=== PATIENT | male | born 1990 | race Caucasian/White ===

== ENCOUNTER 2018-02-06 02:58 | Emergency (ER) | payer OTHER, SELFPAY ==
[2018-02-06 03:00] VITALS: BP 159/94; PULSE 108; RESP 28; TEMP 36.2; O2SAT 98
[2018-02-06 03:04] VITALS: O2SAT 95
[2018-02-06] MEDS: Albuterol/Ipratropium 3 ML UPD VIAL (03:04)
--- NOTE | 2018-02-06 03:05 | W.ED.GENAD ---
Discharge Plan Disposition Patient Disposition: HOME Condition: Improving Discharge Details Chief Complaint: RespSymp Clinical Impression: RAD (reactive airway disease) with wheezing Primary Care Provider: Epi Gupta ED Provider: Herbert Santizo Home Meds and New Rx's Prescriptions: New prednisone 20 mg tablet 40 mg PO DAILY Qty: 8 RF: 0 albuterol sulfate 90 mcg/actuation HFA aerosol inhaler 2 puff IH Q4H PRN (Reason: shortness of breath or wheezing) Qty: 8.5 RF: 0 Discharge Instructions Instructions: Reactive Airways Disease (ED) Additional Instructions: Start taking prednisone tomorrow morning. Use the inhaler every 4 hours to help with wheezing, cough, shortness of breath. Will have case management work with you in getting a primary care follow-up next week. Return to ED for fever, increasing shortness of breath, chest pain, other concerns Referrals: Care Management [Provider Group] Medical Decision Making Patient here with difficulty breathing and wheezing throughout. Has history of exercise-induced asthma and is been ill with URI. He is given a DuoNeb followed by an albuterol. He is given prednisone. Will get chest x-ray as he has had a prolonged URI with residual cough. Doing much better after updrafts. Has received a total of 3. Breathing much better with significant decrease in wheezing though a few scattered wheezes are left. Chest x-ray per my review and preliminary radiology read negative. Patient will be discharged home with an albuterol inhaler with spacer as well as a prescription for steroids. He does not have primary care so we will put on care managers list to get him follow-up next week. Return to ED for fever, chest pain, increasing shortness of breath, other concerns. HPI General Mode of arrival: ambulatory. Date/Time Provider Initiated Documentation: 02/06/18 03:05. Limitations to Documentation: no limitations. Information obtained by: patient. HPI Narrative: Patient presents with cough and shortness of breath. He has had a cold for a couple of weeks which he thought was getting better. The only symptom that continued with cough. Over the last day or so has been worse. Tonight he is having difficulty breathing. He denies any fever. He denies any chest pain. He stopped smoking a couple months ago. He had history of exercise-induced asthma when he was younger. Related Data Home Medications Medication Instructions Recorded Confirmed albuterol sulfate 2 puff IH Q4H PRN #8.5 gm 02/06/18 prednisone 40 mg PO DAILY #8 tab 02/06/18 Previous Rx's Medication Instructions Recorded albuterol sulfate 2 puff IH Q4H PRN #8.5 gm 02/06/18 prednisone 40 mg PO DAILY #8 tab 02/06/18 Allergies Allergy/AdvReac Type Severity Reaction Status Date / Time No Known Allergies Allergy Unverified 02/06/18 03:03 General Stated Complaint: RespSymp CARMEN: 3 Review of Systems Constitutional Denies chills, Denies fever(s), Denies headache(s) and Denies weakness Eyes Denies eye discharge and Denies eye pain ENT Denies otalgia, Denies facial pain, Denies headache(s) and Denies sore throat Cardiovascular Denies chest pain, Denies diaphoresis, Denies pedal edema, Denies lightheadedness and Reports dyspnea Respiratory Reports cough, Reports dyspnea and Reports wheezing Gastrointestinal Denies abdominal pain, Denies diarrhea, Denies nausea and Denies vomiting Musculoskeletal Denies myalgias, Denies arthralgias and Denies numbness Integumentary/Breasts Denies rash Neurologic Denies headache(s), Denies focal weakness, Denies numbness and Denies weakness Allergic/Immunologic Reports wheezing PFSH Medical History HTN (hypertension) (Chronic) Social History Smoking/Tobacco Use Status: Former Tobacco Use Surgical History S/P wrist surgery (Inactive) Exam Const General: cooperative and no acute distress Orientation: alert and oriented x3 [facility] Head: normocephalic and atraumatic Ears: TM's normal bilaterally Mouth: oropharynx normal Throat: posterior oropharynx normal Neck Neck: trachea midline and supple Resp Effort & Inspection: tachypneic Auscultation: wheezes Cardio Rate: regular rate Rhythm: regular rhythm Heart Sounds: S1 normal and S2 normal Neuro General: alert, oriented x3, no focal motor deficits and CN's II-XI intact bilaterally Course Vital Signs Temperature 97.2 F L 02/06/18 03:00 Pulse 108 H 02/06/18 03:00 Respiratory Rate 28 H 02/06/18 03:00 Blood Pressure 159/94 H 02/06/18 03:00 Pulse Oximetry 98 02/06/18 03:00 Temperature 97.2 F L 02/06/18 03:00 Temperature Source Skin 02/06/18 03:00 Pulse 108 H 02/06/18 03:00 Respiratory Rate 28 H 02/06/18 03:00 Respiratory Effort Incrsd Work of Breathing 02/06/18 03:02 Blood Pressure 159/94 H 02/06/18 03:00 Blood Pressure Position Sitting 02/06/18 03:00 Pulse Oximetry 95 02/06/18 03:04 Oxygen Delivery Method Room Air 02/06/18 03:04 Oxygen Flow Rate 0 02/06/18 03:04 Pain Level 0 02/06/18 03:00
--- NOTE | 2018-02-06 03:14 | ED.GENADUL_ITS ---
Discharge Plan Disposition Patient Disposition: HOME Condition: Improving Discharge Details Chief Complaint: RespSymp Clinical Impression: RAD (reactive airway disease) with wheezing Primary Care Provider: Epi Gupta ED Provider: Herbert Santizo Home Meds and New Rx's Prescriptions: New prednisone 20 mg tablet 40 mg PO DAILY Qty: 8 RF: 0 albuterol sulfate 90 mcg/actuation HFA aerosol inhaler 2 puff IH Q4H PRN (Reason: shortness of breath or wheezing) Qty: 8.5 RF: 0 Discharge Instructions Instructions: Reactive Airways Disease (ED) Additional Instructions: Start taking prednisone tomorrow morning. Use the inhaler every 4 hours to help with wheezing, cough, shortness of breath. Will have case management work with you in getting a primary care follow-up next week. Return to ED for fever , increasing shortness of breath, chest pain, other concerns Referrals: Care Management [Provider Group] Medical Decision Making Patient here with difficulty breathing and wheezing throughout. Has history of exercise-induced asthma and is been ill with URI. He is given a DuoNeb followed by an albuterol. He is given prednisone. Will get chest x-ray as he has had a prolonged URI with residual cough. Doing much better after updrafts. Has received a total of 3. Breathing much better with significant decrease in wheezing though a few scattered wheezes are left. Chest x-ray per my review and preliminary radiology read negative. Patient will be discharged home with an albuterol inhaler with spacer as well as a prescription for steroids. He does not have primary care so we will put on care managers list to get him follow-up next week. Return to ED for fever, chest pain, increasing shortness of breath, other concerns. HPI General Mode of arrival: ambulatory . Date/Time Provider Initiated Documentation: 02/06/18 03:05 . Limitations to Documentation: no limitations . Information obtained by: patient . HPI Narrative: Patient presents with cough and shortness of breath. He has had a cold for a couple of weeks which he thought was getting better. The only symptom that continued with cough. Over the last day or so has been worse. Tonight he is having difficulty breathing. He denies any fever. He denies any chest pain. He stopped smoking a couple months ago. He had history of exercise-induced asthma when he was younger. Related Data Home Medications Medication Instructions Recorded Confirmed albuterol sulfate 2 puff IH Q4H PRN #8.5 gm 02/06/18 prednisone 40 mg PO DAILY #8 tab 02/06/18 Previous Rx's Medication Instructions Recorded albuterol sulfate 2 puff IH Q4H PRN #8.5 gm 02/06/18 prednisone 40 mg PO DAILY #8 tab 02/06/18 Allergies Allergy/AdvReac Type Severity Reaction Status Date / Time No Known Allergies Allergy Unverified 02/06/18 03:03 General Stated Complaint: RespSymp CARMEN: 3 Review of Systems Constitutional Denies chills, Denies fever(s), Denies headache(s) and Denies weakness Eyes Denies eye discharge and Denies eye pain ENT Denies otalgia, Denies facial pain, Denies headache(s) and Denies sore throat Cardiovascular Denies chest pain, Denies diaphoresis, Denies pedal edema, Denies lightheadedness and Reports dyspnea Respiratory Reports cough, Reports dyspnea and Reports wheezing Gastrointestinal Denies abdominal pain, Denies diarrhea, Denies nausea and Denies vomiting Musculoskeletal Denies myalgias, Denies arthralgias and Denies numbness Integumentary/Breasts Denies rash Neurologic Denies headache(s), Denies focal weakness, Denies numbness and Denies weakness Allergic/Immunologic Reports wheezing PFSH Medical History HTN (hypertension) (Chronic) Social History Smoking/Tobacco Use Status: Former Tobacco Use Surgical History S/P wrist surgery (Inactive) Exam Const General: cooperative and no acute distress Orientation: alert and oriented x3 [facility] Head: normocephalic and atraumatic Ears: TM's normal bilaterally Mouth: oropharynx normal Throat: posterior oropharynx normal Neck Neck: trachea midline and supple Resp Effort & Inspection: tachypneic Auscultation: wheezes Cardio Rate: regular rate Rhythm: regular rhythm Heart Sounds: S1 normal and S2 normal Neuro General: alert, oriented x3, no focal motor deficits and CN's II-XI intact bilaterally Course Vital Signs Temperature 97.2 F L 02/06/18 03:00 Pulse 108 H 02/06/18 03:00 Respiratory Rate 28 H 02/06/18 03:00 Blood Pressure 159/94 H 02/06/18 03:00 Pulse Oximetry 98 02/06/18 03:00 Temperature 97.2 F L 02/06/18 03:00 Temperature Source Skin 02/06/18 03:00 Pulse 108 H 02/06/18 03:00 Respiratory Rate 28 H 02/06/18 03:00 Respiratory Effort Incrsd Work of Breathing 02/06/18 03:02 Blood Pressure 159/94 H 02/06/18 03:00 Blood Pressure Position Sitting 02/06/18 03:00 Pulse Oximetry 95 02/06/18 03:04 Oxygen Delivery Method Room Air 02/06/18 03:04 Oxygen Flow Rate 0 02/06/18 03:04 Pain Level 0 02/06/18 03:00
[2018-02-06 03:20] VITALS: RESP 4
[2018-02-06] MEDS: predniSONE 20 MG TAB 60 MG PO (03:20)
[2018-02-06] MEDS: Albuterol 2.5 MG/3 ML INH SOLN VIAL UPD ×2 (03:20→03:40)
--- NOTE | 2018-02-06 03:35 | DI.RAD_ITS ---
SYMPTOMS/DIAGNOSIS: COUGH, SHORTNESS OF BREATH PA AND LATERAL CHEST: The heart is normal in size. The lungs are clear. The mediastinal structures and pleura appear intact. CONCLUSION: Normal chest. No evidence of acute cardiopulmonary disease.
--- NOTE | 2018-02-06 03:40 | DI.VRAD_ITS ---
EXAM: XR Chest, 2 Views EXAM DATE/TIME: 02/06/2018 3:07 AM CLINICAL HISTORY: 27 years old, male; Signs and symptoms; Cough and shortness of breath; Patient HX: Cough and SOB TECHNIQUE: XR of the chest, 2 views. COMPARISON: CR CHEST 2 VIEWS PA,LAT 05/17/2017 3:04 PM FINDINGS: Lungs: Unremarkable. No consolidation. Pleural space: Unremarkable. No pleural effusion. No pneumothorax. Heart/Mediastinum: Unremarkable. No cardiomegaly. Bones/joints: Unremarkable. IMPRESSION: No acute findings. Dictated and Authenticated by: Amos Maxwell MD. Ordering:MARIBEL GUILLEN MD
[2018-02-06] MEDS: Albuterol HFA 8 GM 60 PUFF INH IH (03:58)
== END 2018-02-06 03:57 | disposition home or self-care (01) ==
LOC: ER 04:01
PROVIDERS: Emergency Provider Emergency Medicine
DX: J45.909 Unspecified asthma, uncomplicated (principal); Z87.891 Personal history of nicotine dependence; I10 Essential (primary) hypertension
CPT/HCPCS: 94640; 99284; 71046; J7512; J7613; J7620

== ENCOUNTER 2019-06-01 01:58 | Emergency (ER) | payer OTHER, SELFPAY ==
[2019-06-01 02:01] VITALS: BP 164/104; PULSE 109; RESP 20; TEMP 36.3; O2SAT 97
--- NOTE | 2019-06-01 02:02 | ED.GENADUL_ITS ---
Discharge Plan Disposition Patient Disposition: HOME Condition: Good Discharge Details Chief Complaint: RespSymp Clinical Impression: Acute asthma exacerbation Primary Care Provider: None,None ED Provider: Daniel Jacob Home Meds and New Rx's Prescriptions: New prednisone 50 MG tablet 50 mg PO DAILY Qty: 5 RF: 0 No Action albuterol sulfate 90 mcg/actuation HFA aerosol inhaler 2 puff IH Q4H PRN (Reason: shortness of breath or wheezing) Qty: 8.5 RF: 0 Discharge Instructions Instructions: Asthma (ED) Additional Instructions: You have evidence of an asthma exacerbation, and at this time show no evidence of pneumonia or other significant concerning infection. Please take your inhaler, 2 puffs every 4-6 hours as needed. Please use a spacer that was provided. Please take the steroid as directed. If you notice any worsening of your symptoms, or any new symptoms such as vomiting, diarrhea, fever, chills, shortness of breath, chest pain, numbness, weakness, or fainting , please return immediately to the emergency department for reevaluation. Please follow up with your primary care provider as soon as possible for reassessment and reevaluation. As always, it was a pleasure participating in your medical care today. Medical Decision Making This is a very pleasant 29-year-old male with a past medical history of reactive airway disease who presents for acute shortness of breath. He woke up this evening felt notably short of breath, he has had no associated cough or fever. No concerning red flags for PE. No history of cardiac etiology, no chest pain, significant chest tightness, bandlike sensation around the chest, arm neck or shoulder pain. He quit smoking over a year ago. Unfortunately the inhaler that he had from his last visit here for reactive airway disease is now out. Physical exam demonstrates no hypoxemia per vital signs, however he does demonstrate notably tight airways. With no recent fever chills or cough, no concerning foreign travel for coronavirus, I do feel that his signs and symptoms are clinically consistent with an asthma exacerbation. Will treat with duo nebs, steroids, monitor closely and reassess. At this time symptoms are inconsistent with ACS, PE, or significant pneumonia. We will reassess after albuterol, but at this time I feel we can hold off on chest radiography. 2:30 AM On reassessment after 3 breathing treatments the patient feels remarkably better, repeat lung sounds auscultation demonstrates near complete resolution of the wheezes. He states that he feels great and would like to go home. Bedside portable limited ultrasound was performed, no evidence of B-lines consolidation pericardial effusion or other abnormalities. Exam is limited, chest x-ray was offered, however patient has declined any additional radiographic imaging at this time. Signs and symptoms appear clinically consistent with acute asthma exacerbation, and inconsistent with other acute life-threatening abnormalities. Patient will be discharged home with an albuterol inhaler, 5-day course of steroids, and follow-up. We will place him on the follow-up list for PCP. I have extensively reviewed the treatment plan and discharge instructions with the patient. I have addressed all patient concerns at this time. The patient was made aware of what symptoms to monitor for that would warrant a return to the emergency department. Discussed the plan with the patient, they demonstrate verbal understanding and agreement with our assessment and plan at this time. HPI General Date/Time Provider Initiated Documentation: 06/01/19 01:59 . HPI Narrative: This is a very pleasant 29-year-old male with a past medical history of exercise-induced asthma and reactive airway disease in general who presents today for mild shortness of breath. The patient states that he woke up this evening and felt mild chest tightness and shortness of breath consistent with his previous asthma exacerbations. He was here in the ED about 1 year ago, with a near identical presentation, he has been using his inhaler that he was given at that time since then, and unfortunately the inhaler was empty tonight. He denies any new tobacco use, he stopped smoking sometime ago. He denies any recent fever chills or cough. The patient denies any recent foreign travel or contact with recent immigrants, Travelers, or peoples of [employer] or [facility]. The patient denies any recent travel to high risk countries or high risk areas in the [place], or other areas of noted or significant coronavirus infection. Denies PE risk factors such as recent long car rides, immobilization, recent surgery, prior history of DVT or PE, family history of PE or DVT, morbid obesity, exogenous estrogen and smoking, hemoptysis, history of cancer. No history of previous cardiac disease. No other complaints at this time. No other modifying factors. Related Data Home Medications Medication Instructions Recorded Confirmed albuterol sulfate 2 puff IH Q4H PRN #8.5 gm 02/06/18 06/01/19 prednisone 50 mg PO DAILY #5 tab 06/01/19 Previous Rx's Medication Instructions Recorded albuterol sulfate 2 puff IH Q4H PRN #8.5 gm 02/06/18 prednisone 50 mg PO DAILY #5 tab 06/01/19 Allergies Allergy/AdvReac Type Severity Reaction Status Date / Time No Known Allergies Allergy Unverified 06/01/19 02:07 General CARMEN: 3 Review of Systems All systems reviewed & are unremarkable except as noted in HPI and below PFSH Medical History (Updated 06/01/19 @ 02:29 by Daniel Jacob DO) HTN (hypertension) (Chronic) Surgical History (Updated 02/06/18 @ 03:10 by Herbert Santizo MD) S/P wrist surgery (Inactive) Social History Smoking/Tobacco Use Status: Former Tobacco Use Alcohol Intake: former Drug use: Never Do you feel safe at home: Yes Do you feel safe in your relationship?: Yes Exam Narrative Exam Narrative: 1.Const: Well-nourished, Well-developed, appearing stated age 2.Eyes: PERRL, no conjunctival injection, and symmetrical lids. 3.ENT: Atraumatic external nose and ears. Moist MM. Neck: Symmetric, trachea midline, No thyromegaly. 4.CVS: +S1/S2, No murmurs or gallops. Peripheral pulses 2+ and equal in all extremities. Brisk capillary refill in all extremities. 5.RESP: Minimally labored respiratory effort, notable wheezes throughout, no rhonchi or rales. 6.GI: Soft, Nontender/Nondistended, No hepatosplenomegaly. No guarding or rebound. 7.MSK: Normocephalic/Atraumatic, Extremities w/o deformity or ttp No cyanosis or clubbing, Normal movement of all extremities 8.Skin: Warm, Dry. No rashes or lesions. 9.Neuro: golf cart maker II-XII grossly intact. Sensation grossly intact, no focal neurologic deficits. 10.Psych: (AAO) x3. Appropriate mood and affect
[2019-06-01 02:06] VITALS: RESP 4; RESP 8; O2SAT 97
[2019-06-01] MEDS: predniSONE 20 MG TAB 60 MG PO (02:06)
[2019-06-01] MEDS: Albuterol/Ipratropium 3 ML UPD VIAL 9 ML UPD (02:06)
--- NOTE | 2019-06-01 02:31 | NUR.NOTE ---
Nursing Note: COPY MADE FOR DOMINGUEZ 06/01/19
[2019-06-01] MEDS: Albuterol HFA 8 GM 60 PUFF INH IH (02:35)
[2019-06-01 02:45] VITALS: BP 154/88; PULSE 106; RESP 20; O2SAT 99
== END 2019-06-01 02:45 | disposition home or self-care (01) ==
LOC: ER 02:50
PROVIDERS: Emergency Provider Student in an Organized Health Care Education/Training Program
DX: J45.901 Unspecified asthma with (acute) exacerbation (principal); I10 Essential (primary) hypertension; Z87.891 Personal history of nicotine dependence
CPT/HCPCS: 94640; 99284; 99283; J7512; J7620

== ENCOUNTER 2020-04-23 14:29 | Outpatient (REF) | payer SELFPAY ==
[2020-04-26 15:17] LABS: Helicobacter pylori Ag, Feces Negative (Negative)
== END 2020-04-23 14:30 | disposition home or self-care (01) ==
LOC: NCHCN 14:29
PROVIDERS: Visit Provider Family Medicine
DX: K21.9 Gastro-esophageal reflux disease without esophagitis (principal); K43.9 Ventral hernia without obstruction or gangrene
CPT/HCPCS: 87338

== ENCOUNTER 2020-06-10 02:29 | Outpatient (CLI) | payer OTHER, SELFPAY ==
[2020-06-10 09:08] LABS: Source Nasal/Nares
[2020-06-10 12:34] LABS: COVID-19 PCR Negative (Negative)
== END 2020-06-10 02:30 | disposition home or self-care (01) ==
LOC: LBO 02:30
PROVIDERS: Surgery; PCP Family Medicine; Visit Provider Otolaryngology Otolaryngology/Facial Plastic Surgery
DX: Z20.822 Contact with and (suspected) exposure to COVID-19 (principal); Z01.818 Encounter for other preprocedural examination
CPT/HCPCS: 87635

== ENCOUNTER 2020-06-13 06:49 | Day surgery (SDC) | payer OTHER, SELFPAY ==
[2020-06-13] VITALS (9 sets, daily range): BP systolic 130–159; BP diastolic 80–124; PULSE 82–109; RESP 12–23; TEMP 36–36.2; O2SAT 89–97
[2020-06-13] MEDS: Lactated Ringers 1,000 ML 80 ML IV (07:40)
--- NOTE | 2020-06-13 08:14 | W.PM.DSUDISC ---
Discharge Plan Disposition Patient Disposition: HOME Condition: Good Discharge Details Attending Provider: Oren Jesus Primary Care Provider: Олег Flores Home Meds and New Rx's Prescriptions: No Action clindamycin HCl 300 mg capsule 300 mg PO TID RF: 0 methylprednisolone 4 mg tablets,dose pack 4 mg PO DIRECTED RF: 0 albuterol sulfate 90 mcg/actuation HFA aerosol inhaler 2 puff IH Q4H PRN (Reason: shortness of breath or wheezing) Qty: 8.5 RF: 0 Discharge Instructions Additional Instructions: see sheet Activity:: Activity as Tolerated Remove Dressings/Wound Care:: 24 hours Shower/Bathe:: 24 hours Diet:: As Tolerated DS: Diagnosis Discharge Diagnosis (1) Tonsillar hypertrophy: Status: Acute
--- NOTE | 2020-06-13 08:22 | W.PM.OP ---
Operative Note Operative Note DATE OF PROCEDURE: 06/13/20 PRE-OP DIAGNOSIS: Chronic tonsillar hypertrophy Including severe oropharyngeal obstruction 4+ tonsils, left peritonsillar abscess PROCEDURE: Tonsillectomy SURGEON: Oren Jesus ANESTHESIA TYPE: General LMA/ETT Refer to Anesthesia Record ESTIMATED BLOOD LOSS: 20 PATHOLOGY: other COMPLICATIONS: None Patient was transported to: PACU Patient's condition: stable Indications: Pleasant 30-year-old male who presents with a history of chronic tonsillar hypertrophy, decision is made for to proceed with surgery due to oropharyngeal obstruction. Risk and complications were discussed in detail, recommended no driving or machinery on narcotics, discussed the risks of narcotics and weaning off when tolerated to Tylenol and Advil. Findings: 4+ tonsils, small oral aperture, left peritonsillar abscess, increased technically difficult dissection, oropharyngeal obstruction Procedure Description: PROCEDURE IN DETAIL: Patient was brought back to the operating suite in stable condition, placed supine on the operating table, and intubated in normal fashion. The table was rotated 90 degrees. There was no evidence of submucosal clefting or bifid uvula. The McIvor retractor was placed in the oral cavity and suspended from the Mohamud stand. The right tonsil was grasped in the superior pole and medialized. Pinpoint cautery was used to develop the peritonsillar fascial plane, dissection was carried out to the upper and mid portions of the tonsil with final amputation conducted with suction cautery. There was no bleeding within the right tonsillar fossa. Next, the left tonsil was grasped in the superior pole with a curved Allis forceps and medialized. Pinpoint cautery was used to develop the peritonsillar fascial plane. This plane was very scarred, evidence of left peritonsillar abscess, this was found on dissection. Patient's uvula was extremely edematous and enlarged obstructing surgical view, this was sutured out of the way with 3-0 silk suture. Tonsils were 4+ obstructive, even after tonsillectomy, the posterior pharyngeal pillars were approximating, severe redundancy of posterior pharynx. Very narrow oral aperture making the surgery highly difficult for surgical access. Dissection was carried out in the plane in the superior and mid portion of the tonsils. Final amputation was conducted with suction cautery without bleeding within left fossa, Valsalva was performed without bleeding. FloSeal was placed in the bilateral tonsillar fossa's, there was edema of the uvula, the uvula was extremely obstructive preoperatively, the maximize steroids to 20 mg of Decadron. TMJ's were checked and were free of dislocation. Gastric contents suctioned. The patient tolerated the procedure well and went to PACU in stable condition. 20 cc blood loss, recommended extended recovery. With continued airway observation
[2020-06-13] MEDS: Oxymetazolone 0.05% SPRAY 15 ML BTL ×2 (09:00→09:37)
--- NOTE | 2020-06-13 09:15 | TONSIL_PTH ---
PATIENT: Florentino Brooks LOC: [facility] U#:[id number] AGE/SX: 30/M ROOM: RE06/13/[address]: Oren Jesus DO : 1990 BED: DIS: 06/13/2020 SPEC #: [id number] RECD: 06/13/20 12:59 STATUS: JOE REQ #: [id number] MICHAEL: 06/13/20 09:[address]: Oren Jesus DEPT: Surgical Specimen RECD BY: Shannan Gil ENTERED: 06/13/20 13:00 SP TYPE: TONSIL OTHR DR: Олег Flores Tissues: 1 - TONSIL AGE 17 & OVER 2 - TONSIL AGE 17 & OVER Procedures: GROSS AND MICRO LEVEL 3 Comments: [id number]
[2020-06-13] MEDS: oxyCODONE 5 mg/Acetaminophen 325 mg TAB PO ×2 (10:35→11:04)
== END 2020-06-13 13:18 | disposition home or self-care (01) ==
PROVIDERS: PCP Family Medicine; Visit Provider Otolaryngology Otolaryngology/Facial Plastic Surgery
PROC: (CPT 42826; principal; 2020-06-13 08:45)
DX: J35.1 Hypertrophy of tonsils (principal); J36 Peritonsillar abscess
CPT/HCPCS: 42826; 88304; J0131; J1100; J2001; J2405; J2704; J3010

== ENCOUNTER 2020-07-25 03:01 | Outpatient (CLI) | payer OTHER, SELFPAY ==
[2020-07-25 10:40] LABS: Source Nasal/Nares
[2020-07-25 17:02] LABS: COVID-19 PCR Negative (Negative)
== END 2020-07-25 03:02 | disposition home or self-care (01) ==
LOC: LBO 03:01
PROVIDERS: PCP Family Medicine; Visit Provider Surgery
DX: Z20.822 Contact with and (suspected) exposure to COVID-19 (principal)
CPT/HCPCS: 87635

== ENCOUNTER 2020-07-27 06:01 | Day surgery (SDC) | payer OTHER, SELFPAY ==
[2020-07-27] VITALS (8 sets, daily range): BP systolic 96–132; BP diastolic 53–85; PULSE 57–83; RESP 12–19; TEMP 36.1–36.6; O2SAT 93–97; BMI 34.5
--- NOTE | 2020-07-27 06:28 | W.PM.OP ---
Date of service: 07/27/20 Time of Service: 08:17 Operative Note Operative Note DATE OF PROCEDURE: 07/27/20 PRE-OP DIAGNOSIS: Umbilical hernia POST-OP DIAGNOSIS: same PROCEDURE: Open umbilical hernia repair with mesh SURGEON: Sonia Millan B2B APPOINTMENT SETTER: Isa Lombardo ANESTHESIA TYPE: Local By Surgeon and Spinal Refer to Anesthesia Record ESTIMATED BLOOD LOSS: 20 PATHOLOGY: none sent COMPLICATIONS: None Patient was transported to: PACU Patient's condition: stable Implants: Ventralex: REF- [id number] LOT- [id number] 2022-01-12 Indications: Mr. Brooks is a pleasant 30-year-old gentleman who noted a bulge in the umbilical area couple months ago. He has some mild discomfort at times. His job is quite physical. He is obese, has some mild intermittent asthma for which she just takes albuterol as needed. He also snores and wonders whether he has sleep apnea. Per primary care physician his tonsils look enlarged and he was referred to ear nose and throat for assessment. He does not yet have an appointment with them. He does not have any shortness of breath. He does have some mild reflux as well for which he only takes Tums as needed. We discussed umbilical hernia repair with mesh. I used a pamphlet with pictures to describe the procedure and possible complications. We also reviewed Covid testing prior to the procedure and quarantine requirements. Patient would like to proceed. Risks, benefits and complications have been reviewed. Complications include but are not limited to bleeding, pain, infection, injury to underlying structures like bowel and adverse reaction to the medication. Questions were entertained and answered to their satisfaction and they wished to proceed. No guarantees were given or implied. COVID-19 testing explained to the patient. Reason for test reviewed. Quarantine per state requirements reviewed with patient. Patient understands and agrees to testing. Proceed with open umbilical hernia repair with mesh Findings: 2 cm hernia defect Procedure Description: After informed consent was obtained the patient was taken to the operating room and placed in a supine position. Monitors and SCDs were applied and a timeout was done. The patient's name, date of , procedure type, procedure site, allergies to medications, preoperative antibiotic, and DVT prophylaxis were all reviewed. Fire risk was assessed. A short acting spinal was done by anesthesia. Once anesthesia was done the abdomen was prepped and draped in a sterile surgical fashion. 0.5% Bupivacaine mixed 50/50 with Exparel was injected into the dermis just under the umbilicus. An incision was made with a 10 blade under the umbilicus. Dissection was done with cautery through the subcutaneous tissues and through the umbilical stalk down to the fascia. The hernia defect was identified and measured 2 cm. The hernia sac was opened and amputated at the fascia level. The peritoneum was swept for adhesions. No adhesions were noted. A 6.4 cm round mesh was then placed under the peritoneum and secured in 4 quarters with 2-0 Proline. Once the mesh was secured the tissues were irrigated with some normal saline. No bleeding was identified. The fascia was closed over the mesh with 0 vicryl running suture. 0 Vicryl was used to secure the umbilicus down to the fascia. The subcutaneous tissue was re-approximated with 2-0 vicryl. The dermis was re-approximated with a running 4-0 Vicryl. The skin was cleaned and dried and skin affix was applied. The patient was woken up and taken back to recovery in stable condition. There were no immediate complications. Sponge, instrument and needle counts were correct at the end of the case x2.
--- NOTE | 2020-07-27 06:29 | W.PREOPHP ---
Date of service: 07/27/20 Time of Service: 06:29 Assessment and Plan Assessment and plan (1) Umbilical hernia: Status: Acute Assessment and plan: Mr. Brooks is a pleasant 30-year-old gentleman who noted a bulge in the umbilical area couple months ago. He has some mild discomfort at times. His job is quite physical. He is obese, has some mild intermittent asthma for which she just takes albuterol as needed. He also snores and wonders whether he has sleep apnea. Per primary care physician his tonsils look enlarged and he was referred to ear nose and throat for assessment. He does not yet have an appointment with them. He does not have any shortness of breath. He does have some mild reflux as well for which he only takes Tums as needed. We discussed umbilical hernia repair with mesh. I used a pamphlet with pictures to describe the procedure and possible complications. We also reviewed Covid testing prior to the procedure and quarantine requirements. Patient would like to proceed. Risks, benefits and complications have been reviewed. Complications include but are not limited to bleeding, pain, infection, injury to underlying structures like bowel and adverse reaction to the medication. Questions were entertained and answered to their satisfaction and they wished to proceed. No guarantees were given or implied. COVID-19 testing explained to the patient. Reason for test reviewed. Quarantine per state requirements reviewed with patient. Patient understands and agrees to testing. Proceed with open umbilical hernia repair with mesh Qualifiers: Obstruction and gangrene presence: without obstruction or gangrene Qualified Code(s): K42.9 - Umbilical hernia without obstruction or gangrene History of Present Illness Narrative: Mr. Brooks is a pleasant 30-year-old gentleman who was sent here by his primary care physician for an umbilical hernia. The patient tells me that he noticed the umbilical hernia couple of months ago. He does not know exactly when it started. He sometimes has some discomfort around the umbilicus. He denies any nausea or vomiting. He states that when he lays down and relaxes he can usually push the hernia back. He also tells me that his primary care physician told him he had another hernia above the umbilicus. Since he was seen he underwent tonsilectomy and did well with surgery. Review of Systems Cardiovascular Cardiovascular: Denies chest pain, Denies chest pain at rest, Denies irregular heart rhythm, Denies dyspnea and Denies dyspnea on exertion Respiratory Respiratory: Denies cough, Denies dyspnea and Denies dyspnea on exertion Gastrointestinal Gastrointestinal: Reports as per HPI Genitourinary Genitourinary: Denies dysuria, Denies urinary incontinence and Denies urinary urgency Endocrine Endocrine: Reports system reviewed and no additional complaints, except as documented Hematologic/Lymphatic Hematologic/Lymphatic: Denies easy bruising and Denies lymphadenopathy PFSH Medical History Asthma GERD (gastroesophageal reflux disease) infrequent. Takes TUMS HTN (hypertension) Obesity Tonsillar hypertrophy Surgical History Hx of tonsillectomy S/P wrist surgery Social History Smoking/Tobacco Use Status: Former Tobacco Use Quit Date: 03/18/15 Smoking risk assessment performed?: Yes Alcohol Intake: current Alcohol Intake frequency: holidays/special occasions only Drug use: Rarely Substance use type: marijuana Do you feel safe at home: Yes Do you feel safe in your relationship?: Yes Meds Allergies and Home Medications Allergies Allergy/AdvReac Type Severity Reaction Status Date / Time No Known Allergies Allergy Unverified 07/27/20 06:24 Home Medications Medication Instructions Recorded Confirmed Type albuterol sulfate 2 puff IH Q4H PRN #8.5 gm 02/06/18 07/27/20 Rx clindamycin HCl 300 mg PO TID 05/30/20 07/27/20 History methylprednisolone 4 mg PO DIRECTED 06/10/20 07/27/20 History Exam Const General: healthy appearing and comfortable Resp Effort & Inspection: normal respiratory effort Auscultation: clear to auscultation bilaterally Cardio Rate: regular rate Rhythm: regular rhythm Heart Sounds: no click, no gallops and no murmurs
--- NOTE | 2020-07-27 06:31 | W.PM.DSUDISC ---
Discharge Plan Disposition Patient Disposition: HOME Condition: Good Discharge Details Reason For Visit: umbilical hernia Attending Provider: Sonia Millan Primary Care Provider: Олег Flores Home Meds and New Rx's Prescriptions: Continued clindamycin HCl 300 mg capsule 300 mg PO TID RF: 0 methylprednisolone 4 mg tablets,dose pack 4 mg PO DIRECTED RF: 0 albuterol sulfate 90 mcg/actuation HFA aerosol inhaler 2 puff IH Q4H PRN (Reason: shortness of breath or wheezing) Qty: 8.5 RF: 0 Discharge Instructions Instructions: Open Herniorrhaphy (DC) Additional Instructions: Activity at Home after surgery: 1. Make sure you walk outside at least 4 times per day 2. You should be able to climb a flight of stairs 3. No driving while in pain or taking pain medications 4. No strenuous activity or heavy lifting for 4 weeks (open surgery) Diet, Nutrition, & wound healin. Avoid alcohol until after you are recovered from your surgery 2. Make sure to eat plenty of lean protein (meat, fish, eggs, cottage cheese, beans) 3. Eat a variety of fruits and vegetables. Eat plenty of high fiber foods to avoid constipation. 4. Drink plenty of liquids to stay hydrated and avoid constipation Pain Medications: 1. Tylenol 650mg every 6 hours as needed and Ibuprofen 600 mg every 6 hours as needed. You may alternate between the 2 medications every 3 hours 2. If a narcotic has been prescribed take as directed only for breakthrough pain For Constipation: 1. Take Milk of Magnesia or MiraLax as needed for constipation Other: 1. You may shower daily. Do not scrub the incisions 2. Do not soak the incisions for 1 week 3. You may alternate ice and heat as needed for pain and swelling Wound Care: 1. Keep the incisions clean and dry Please call our office if you develop: 1. Fevers >101.5 2. Nausea or Vomiting 3. Worsening pain 4. Redness and thick discharge from the wounds If after hours please call the Hospital at and ask to speak to the on-call surgeon Referrals: Sonia Millan MD [ [facility] STAFF PHYSICIAN] - 08/05/20 8:30 am Activity:: see above Shower/Bathe:: 24 hours Diet:: As Tolerated Discharge Orders Discharge Orders: Discharge Order (Routine); Ordered 07/27/20 Ordered By: Sonia Millan DS: Diagnosis Discharge Diagnosis (1) Umbilical hernia: Status: Acute
[2020-07-27] MEDS: Acetaminophen 500 MG TAB (06:40)
[2020-07-27] MEDS: Celecoxib 200 MG CAP (06:41)
--- NOTE | 2020-07-27 06:51 | W.ANESPRE ---
General Info Date of Service Date Performed: 07/27/20 Height: 6 ft 4 in Weight: 128.8 kg Body Mass Index (BMI): 34.5 Surgical Procedure: Operation Date: 07/27/20 07:40 Proposed Procedures Side Surgeon p Herniorraphy Umbilical WITH MESH Sonia Millan MD Meds Allergies and Home Medications Allergies Allergy/AdvReac Type Severity Reaction Status Date / Time No Known Allergies Allergy Unverified 07/27/20 06:24 Home Medication Medication Instructions Recorded albuterol sulfate 2 puff IH Q4H PRN #8.5 gm 02/06/18 clindamycin HCl 300 mg PO TID 05/30/20 methylprednisolone 4 mg PO DIRECTED 06/10/20 Current Visit Medications: Current Medications Generic Name Dose Route Start Last Admin Trade Name Freq PRN Reason Stop Dose Admin Ringer's Solution 1,000 mls @ 80 mls/hr 07/27/20 06:00 IV 08/25/20 23:59 INFUSION FLO Cefazolin Sodium/Dextrose 2 gm in 50 mls @ 100 mls/hr 07/27/20 06:00 Ancef Duplex IVPB 08/25/20 23:59 PREOP FLO Ondansetron HCl 4 mg/ Sodium 52 mls @ 200 mls/hr 07/27/20 06:32 Chloride IVPB Q6H PRN PRN IV Miscellaneous Supplies 1 each 07/27/20 06:00 Iv Access IV 08/25/20 23:59 DIRECTED FLO Morphine Sulfate 2 mg 07/27/20 06:32 Morphine 4 Mg/Ml Vial IVP Q1H PRN PRN Oxycodone HCl 5 mg 07/27/20 06:32 Oxycodone 5 Mg Tab PO Q3H PRN PRN Pain Sodium Chloride 0 ml 07/27/20 06:00 Normal Saline Flush 10 Ml Syr IV 08/25/20 23:59 PRN PRN Sodium Chloride 0 ml 07/27/20 06:00 Normal Saline 10 Ml Vial IJ 08/25/20 23:59 DIRECTED PRN Sterile Water 0 ml 07/27/20 06:00 Water,Injection,Sterile 10 Ml Vial IJ 08/25/20 23:59 DIRECTED PRN PFSH Active Problems Active Problems: Problem Status Onset Code Umbilical hernia K42.9 Frequent headaches R51.9 Medical History Medical History Asthma GERD (gastroesophageal reflux disease) infrequent. Takes TUMS HTN (hypertension) Obesity Tonsillar hypertrophy Surgical History Surgical History Hx of tonsillectomy S/P wrist surgery Tobacco Smoking/Tobacco Use Status: Former Tobacco Use Alcohol Alcohol Intake: current Alcohol intake frequency: holidays/special occasions only Alcohol type: beer, wine and hard liquor Substance Use Substance use: Rarely Substance use type: marijuana Details: alcohol: unknown. Marijuana: t-14 Vital Signs and Lab Results Vital Signs Most Recent Vital Signs in EMR: Most Recent Vital Signs Temp Pulse Resp BP Pulse Ox 36.2 C L 83 18 132/85 95 07/27/20 06:30 07/27/20 06:30 07/27/20 06:30 07/27/20 06:30 07/27/20 06:30 Lab Results Blood Type / Crossmatch: No Data to Display Complete Blood Count: No Data to Display Complete Metabolic Panel: No Data to Display Liver Function Panel: No Data to Display Coagulation Panel: No Data to Display Cardiac Panel: No Data to Display Arterial Blood Gas: No Data to Display Venous Blood Gas: No Data to Display Pancreas Panel: No Data to Display Thyroid Panel: No Data to Display Infectious Disease: Coronavirus (COVID-19)(PCR) Negative (Negative) 07/25/20 09:15 07/25/20 Coronavirus 2019 Source Nasal/nares 07/25/20 09:15 07/25/20 Blood Cultures: No Data to Display Toxicology Panel: No Data to Display Anesthesia Assessment and Plan Anesthesia History Personal History: No History of Anesthesia Complications Family History: No Family History of Anesthesia Complications Exercise Tolerance Exercise Tolerance: Metabolic Equivalents>4 Cardiac & Pulmonary Exam Cardiac Exam: Normal S1/S2 Heart Sounds Pulmonary Exam: Wheezing Present Airway Exam Known Difficult Airway: No Mallampati Class: 3 Mouth Opening: Normal (> 3cm) Thyromental Distance: Greater than 3 cm Facial Hair: Full Chen Neck Range of Motion: Full ROM Neck Circumference: Normal Teeth Condition: Normal Dentition ASA Classification ASA Score: ASA 2 Emergency Case?: No NPO Status NPO Status: NPO Clears >2 hours, Solids >8 hours Anesthesia Plan Anesthesia Technique: Spinal Anesthesia Airway Planned: Natural Airway Monitors Used: Standard Monitors
[2020-07-27] MEDS: Lactated Ringers 1,000 ML 80 ML IV (07:00)
[2020-07-27] MEDS: ceFAZolin 2 GM/50 ML BAG IVPB (07:26)
[2020-07-27] MEDS: Bupivacaine LIPOSOME/PF 133 MG/10 ML VIAL IJ (07:46)
[2020-07-27] MEDS: Bupivacaine 0.25% Pres-Free 10 ML VIAL (07:46)
[2020-07-27] MEDS: fentaNYL 100 MCG/2 ML VIAL IVP (08:56)
--- NOTE | 2020-07-27 09:11 | W.ANESPOSTOP ---
Postoperative Evaluation Date, Time and Location Date Performed: 07/27/20 Time Performed: 09:11 Patient Location: PACU Vital Signs Most Recent Imported Vital Signs: Most Recent Vital Signs Temp Pulse Resp BP Pulse Ox 36.6 C 57 L 12 106/55 L 97 07/27/20 09:07 07/27/20 09:07 07/27/20 09:07 07/27/20 09:07 07/27/20 09:07 Pain Score Most Recent Pain Score: Most Recent Pain Score Pain Level 6 07/27/20 09:07 Assessment Mental Status: Awake (Alert & Oriented to Patient Baseline) Airway and Respiratory Function: Patent airway with normal (patient baseline) respiratory exam Cardiovascular Function: Hemodynamically Stable Hydration Status: Adequately Hydrated Nausea & Vomiting: No Nausea or Vomiting Pain: Pt. Denies Any Pain Peripheral Nerve Block: Other (Spinal appropriately resolving)
[2020-07-27] MEDS: oxyCODONE 5 MG TAB PO (09:46)
== END 2020-07-27 11:47 | disposition home or self-care (01) ==
PROVIDERS: PCP Family Medicine; Visit Provider Surgery
PROC: (CPT 49585; principal; 2020-07-27 07:30)
DX: K42.9 Umbilical hernia without obstruction or gangrene (principal); J45.20 Mild intermittent asthma, uncomplicated; K21.9 Gastro-esophageal reflux disease without esophagitis; R06.83 Snoring
CPT/HCPCS: 49585; C1781; J0690; J1100; J2250; J2405; J3010

== ENCOUNTER 2020-10-01 16:00 | Emergency (ER) | payer OTHER, SELFPAY ==
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
[2020-10-01 16:18] VITALS: BP 168/100; PULSE 102; TEMP 37; O2SAT 95
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
[2020-10-01] MEDS: Ibuprofen 600 MG TAB PO (16:41)
[2020-10-01 17:32] VITALS: BP 142/90; PULSE 88; RESP 18; O2SAT 95
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
== END 2020-10-01 18:04 | disposition home or self-care (01) ==
PROVIDERS: Emergency Provider Registered Nurse Emergency; PCP Family Medicine
DX: S06.0X0A Concussion without loss of consciousness, initial encounter (principal); M25.561 Pain in right knee; V18.0XXA Pedal cycle driver injured in noncollision transport accident in nontraffic accident, initial encounter; Y93.55 Activity, bike riding
CPT/HCPCS: 73562; 99284; 70450; 72125; 99285

== ENCOUNTER 2021-02-13 22:17 | Emergency (ER) | payer OTHER, SELFPAY ==
[2021-02-13 22:26] VITALS: BP 179/90; PULSE 88; RESP 20; TEMP 37.3; O2SAT 96
--- NOTE | 2021-02-13 22:30 | DI.RAD_ITS ---
Exam(s) XR WRIST LT COMPLETE EXAM: XR WRIST LT COMPLETE CLINICAL HISTORY: FOOSH snowboarding. TECHNIQUE: 2D digital imaging was performed of the left wrist. Three images were obtained. PA, obl ique and lateral views were obtained. COMPARISON: No exams were available for comparison FINDINGS: BONES: No acute fracture is present. No bony destructive lesion is seen. Well corticated osseous dens ity at the tip of the ulnar styloid process likely reflecting an old injury. JOINTS: The carpal bones are normally aligned. SOFT TISSUE: Normal. IMPRESSION: No acute fracture or dislocation. DATA REPOSITORY: RADIATION DOSE DELIVERED:
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
--- NOTE | 2021-02-13 23:30 | DI.VRAD_ITS ---
PROCEDURE INFORMATION: Exam: XR Left Wrist Exam date and time: 02/13/2021 10:38 PM Age: 30 years old Clinical indication: Pain; Wrist; Left; Patient HX: Foosh snowboarding TECHNIQUE: Imaging protocol: XR Left wrist. Views: 3 or more views. COMPARISON: No relevant prior studies available. FINDINGS: Bones/joints: No acute fracture. Probable old ulnar styloid process fracture. No dislocation. Soft tissues: Intact soft tissues. No significant soft tissue swelling. No foreign body. IMPRESSION: 1. No acute fracture or dislocation. 2. Appearance suggesting an old ulnar styloid process fracture. 3. No significant soft tissue swelling. No foreign body. Dictated and Authenticated by: Arnold Santos MD. Ordering:RAFFY Gomez MD
== END 2021-02-13 23:48 | disposition home or self-care (01) ==
PROVIDERS: Emergency Provider Physician Assistant; PCP Family Medicine
DX: S63.592A Other specified sprain of left wrist, initial encounter (principal); V00.311A Fall from snowboard, initial encounter
CPT/HCPCS: 29125; 99283; 73110

== ENCOUNTER 2021-07-26 11:20 | Outpatient (REF) | payer OTHER, SELFPAY ==
[2021-07-26 15:54] LABS: Calculated LDL 115 mg/dL (<100); Cholesterol 186 mg/dL (<200); HDL Cholesterol 40 mg/dL (40-60); Triglyceride 155 mg/dL (<150)
== END 2021-07-26 11:21 | disposition home or self-care (01) ==
LOC: NCHCN 11:20
PROVIDERS: PCP Family Medicine; Visit Provider Family Medicine
DX: Z00.00 Encounter for general adult medical examination without abnormal findings (principal); Z13.220 Encounter for screening for lipoid disorders
CPT/HCPCS: 80061